=== PATIENT | female | born 1990 | race American Indian/Alaskan Native ===

== ENCOUNTER 2022-03-31 16:58 | Emergency (ER) | payer MEDICAID, OTHER ==
[2022-03-31] MEDS ORDERED: ONDANSETRON 4 MG/2 ML INJ IV ONE (19:27)
[2022-03-31] MEDS ORDERED: SODIUM CHLORIDE 0.9% 1000 ML 1,000 ML IV ONE (19:27)
[2022-03-31] MEDS ORDERED: MORPHINE 4 MG/1 ML INJ IM ONE (19:27)
--- NOTE | 2022-03-31 19:33 | Emergency Department Report ---
ED General Adult HPI - General Chief complaint: Vaginal Bleeding Stated complaint: BLEEDING 7WKS PREG Time Seen by Provider: 03/31/22 19:20 Source: patient, EMS Mode of arrival: Stretcher Limitations: No Limitations - History of Present Illness Initial comments: 31-year-old female with no significant past medical history reports to the ER with complaints of vaginal bleeding. Patient reports she was 7 weeks on her last ultrasound that was on March 10. Patient reports having clots passing with her vaginal bleeding this time. Patient is a G1, P4. Patient reports abdominal cramping with a pain level 5 out of 10. Patient reports her vaginal bleeding started today. Patient reports no other acute signs or symptoms at this moment - Related Data Previous Rx's Medication Instructions Recorded Last Taken Type Acetaminophen/Codeine [Tylenol 1 tab PO Q6H PRN 3 Days #9 tab 03/31/22 Unknown Rx /Codeine # 3 tab] Allergies Allergy/AdvReac Type Severity Reaction Status Date / Time No Known Allergies Allergy Verified 03/31/22 17:05 ED Review of Systems ROS: Stated complaint: BLEEDING 7WKS PREG Other details as noted in HPI Comment: All other systems reviewed and negative Gastrointestinal: abdominal pain Genitourinary: other (Vaginal bleeding) ED Past Medical Hx - Past Medical History Previous Medical History?: No - Medications Home Medications: Home Medications Medication Instructions Recorded Confirmed Last Taken Type Acetaminophen/Codeine [Tylenol 1 tab PO Q6H PRN 3 Days #9 tab 03/31/22 Unknown Rx /Codeine # 3 tab] ED Physical Exam - General Limitations: No Limitations General appearance: alert, in no apparent distress - Head Head exam: Present: atraumatic, normocephalic - Eye Eye exam: Present: normal appearance - ENT ENT exam: Present: mucous membranes moist - Neck Neck exam: Present: normal inspection - Respiratory Respiratory exam: Present: normal lung sounds bilaterally. Absent: respiratory distress - Cardiovascular Cardiovascular Exam: Present: regular rate, normal rhythm. Absent: systolic murmur, diastolic murmur, rubs, gallop - GI/Abdominal GI/Abdominal exam: Present: soft, normal bowel sounds, other (Suprapubic pain) - External exam: Present: other (Vaginal exam deferred.) - Extremities Exam Extremities exam: Present: normal inspection - Back Exam Back exam: Present: normal inspection - Neurological Exam Neurological exam: Present: alert, oriented X3 - Psychiatric Psychiatric exam: Present: normal affect, normal mood - Skin Skin exam: Present: warm, dry, intact, normal color. Absent: rash ED Course Vital Signs 03/31/22 03/31/22 17:03 22:15 Temperature 98.7 F Pulse Rate 92 H 79 Respiratory 17 Rate Blood Pressure 106/74 114/59 [Left] O2 Sat by Pulse 100 98 Oximetry ED Medical Decision Making - Lab Data Result diagrams: 03/31/22 19:32 03/31/22 19:32 - Radiology Data Radiology results: report reviewed [facility] [address] [place] [address] Ultrasound Report Signed Patient: MIGUEL ANGEL CHAUDHARI MR#: [id number] : 1990 Acct:[id number] Age/Sex: 31 / F ADM Date: 03/31/22 Loc: ED Attending Dr: Ordering Physician: SADA ALBRIGHT NP Date of Service: 03/31/22 Procedure(s): US OB <= 14 weeks fetus Accession Number(s): [id number] cc: SADA ALBRIGHT NP ULTRASOUND OBSTETRIC INDICATION: Vaginal bleeding. Miscarriage. TECHNIQUE: Transabdominal. COMPARISON: None available. FINDINGS: GESTATIONAL SAC: None seen. YOLK SAC: None seen. EMBRYO/FETUS: None seen. ADNEXA: No evidence of an ectopic . There is a 1.7 cm follicle in the right ovary. FREE FLUID: None. ADDITIONAL FINDINGS: None. IMPRESSION: No sonographic evidence of an intrauterine or ectopic . No other acute findings. Signer Name: Raoul Marvin MD Signed: 03/31/2022 9:54 PM Workstation Name: [id number] Transcribed By: [place] Dictated By: Raoul Marvin MD Electronically Authenticated By: Raoul Marvin MD Signed Date/Time: 03/31/222153 DD/ 51 TD/TT: - Medical Decision Making 31-year-old female reports to the ER with complaints of vaginal bleeding. Patient reports she is 7 weeks on her last ultrasound on March 10. Patient reports passing of clots. On physical exam patient does have suprapubic pain. Labs are unremarkable. Patient is hCG is low for patient is expected timeframe of weeks. Ultrasound shows no products of conception within her uterus. Patient informed of lab results and ultrasound findings. Patient informed to follow-up with her [facility] and her primary care provider. Patient has likely passed products of conception when she was passing clots. Patient reports a decrease in pain while in the ER patient reports feeling better. Patient informed that her symptoms are to get worse or increase in bleeding to report back to the ER. Patient agrees with plan of care and verbalized understanding. Vital Signs 03/31/22 03/31/22 17:03 22:15 Temperature 98.7 F Pulse Rate 92 H 79 Respiratory 17 Rate Blood Pressure 106/74 114/59 [Left] O2 Sat by Pulse 100 98 Oximetry Lab Results 03/31/22 03/31/22 03/31/22 Range/Units 19:32 19:32 19:32 WBC 11.2 H (4.5-11.0) K/mm3 RBC 3.96 (3.65-5.03) M/mm3 Hgb 10.3 (10.1-14.3) gm/dl Hct 31.8 (30.3-42.9) % MCV 80 (79-97) fl MCH 26 L (28-32) pg MCHC 32 (30-34) % RDW 23.4 H (13.2-15.2) % Plt Count 287 (140-440) K/mm3 Add Manual Diff Complete Total Counted 100 Seg Neuts % (Manual) 75.0 H (40.0-70.0) % Band Neutrophils % 2.0 % Lymphocytes % (Manual) 16.0 (13.4-35.0) % Reactive Lymphs % (Man) 0 % Monocytes % (Manual) 4.0 (0.0-7.3) % Eosinophils % (Manual) 3.0 (0.0-4.3) % Basophils % (Manual) 0 (0.0-1.8) % Metamyelocytes % 0 % Myelocytes % 0 % Promyelocytes % 0 % Blast Cells % 0 % Nucleated RBC % Not Reportable Seg Neutrophils # Man 8.4 H (1.8-7.7) K/mm3 Band Neutrophils # 0.2 K/mm3 Lymphocytes # (Manual) 1.8 (1.2-5.4) K/mm3 Abs React Lymphs (Man) 0.0 K/mm3 Monocytes # (Manual) 0.4 (0.0-0.8) K/mm3 Eosinophils # (Manual) 0.3 (0.0-0.4) K/mm3 Basophils # (Manual) 0.0 (0.0-0.1) K/mm3 Metamyelocytes # 0.0 K/mm3 Myelocytes # 0.0 K/mm3 Promyelocytes # 0.0 K/mm3 Blast Cells # 0.0 K/mm3 WBC Morphology Not Reportable Hypersegmented Neuts Not Reportable Hyposegmented Neuts Not Reportable Hypogranular Neuts Not Reportable Smudge Cells Not Reportable Toxic Granulation Not Reportable Toxic Vacuolation Not Reportable Dohle Bodies Not Reportable Pelger-Huet Anomaly Not Reportable Estrellita Rods Not Reportable Platelet Estimate Consistent w auto Clumped Platelets Not Reportable Plt Clumps, EDTA Not Reportable Large Platelets Not Reportable Giant Platelets Not Reportable Platelet Satelliting Not Reportable Plt Morphology Comment Not Reportable RBC Morphology Not Reportable Dimorphic RBCs Not Reportable Polychromasia Not Reportable Hypochromasia 1+ Poikilocytosis Not Reportable Anisocytosis 1+ Microcytosis 1+ Macrocytosis Not Reportable Spherocytes Not Reportable Pappenheimer Bodies Not Reportable Sickle Cells Not Reportable Target Cells Not Reportable Tear Drop Cells Not Reportable Ovalocytes Not Reportable Helmet Cells Not Reportable [place] Bodies Not Reportable [place] Rings Not Reportable Geri Cells Not Reportable Bite Cells Not Reportable Crenated Cell Not Reportable Elliptocytes Not Reportable Acanthocytes (Spur) Not Reportable Rouleaux Not Reportable Hemoglobin C Crystals Not Reportable Schistocytes Rare Malaria parasites Not Reportable Ranjit Bodies Not Reportable Hem Pathologist Commnt No Sodium 138 (137-145) mmol/L Potassium 4.4 (3.6-5.0) mmol/L Chloride 105.6 (98-107) mmol/L Carbon Dioxide 21 L (22-30) mmol/L Anion Gap 16 mmol/L BUN 5 L (7-17) mg/dL Creatinine 0.7 (0.6-1.2) mg/dL Estimated GFR > 60 ml/min BUN/Creatinine Ratio 7 % Glucose 86 (65-100) mg/dL Calcium 9.4 (8.4-10.2) mg/dL HCG, Quant 1517 H (0-4) mIU/mL Blood Type Antibody Screen 03/31/22 Range/Units 20:00 WBC (4.5-11.0) K/mm3 RBC (3.65-5.03) M/mm3 Hgb (10.1-14.3) gm/dl Hct (30.3-42.9) % MCV (79-97) fl MCH (28-32) pg MCHC (30-34) % RDW (13.2-15.2) % Plt Count (140-440) K/mm3 Add Manual Diff Total Counted Seg Neuts % (Manual) (40.0-70.0) % Band Neutrophils % % Lymphocytes % (Manual) (13.4-35.0) % Reactive Lymphs % (Man) % Monocytes % (Manual) (0.0-7.3) % Eosinophils % (Manual) (0.0-4.3) % Basophils % (Manual) (0.0-1.8) % Metamyelocytes % % Myelocytes % % Promyelocytes % % Blast Cells % % Nucleated RBC % Seg Neutrophils # Man (1.8-7.7) K/mm3 Band Neutrophils # K/mm3 Lymphocytes # (Manual) (1.2-5.4) K/mm3 Abs React Lymphs (Man) K/mm3 Monocytes # (Manual) (0.0-0.8) K/mm3 Eosinophils # (Manual) (0.0-0.4) K/mm3 Basophils # (Manual) (0.0-0.1) K/mm3 Metamyelocytes # K/mm3 Myelocytes # K/mm3 Promyelocytes # K/mm3 Blast Cells # K/mm3 WBC Morphology Hypersegmented Neuts Hyposegmented Neuts Hypogranular Neuts Smudge Cells Toxic Granulation Toxic Vacuolation Dohle Bodies Pelger-Huet Anomaly Estrellita Rods Platelet Estimate Clumped Platelets Plt Clumps, EDTA Large Platelets Giant Platelets Platelet Satelliting Plt Morphology Comment RBC Morphology Dimorphic RBCs Polychromasia Hypochromasia Poikilocytosis Anisocytosis Microcytosis Macrocytosis Spherocytes Pappenheimer Bodies Sickle Cells Target Cells Tear Drop Cells Ovalocytes Helmet Cells [place] Bodies [place] Rings [place] Cells Bite Cells Crenated Cell Elliptocytes Acanthocytes (Spur) Rouleaux Hemoglobin C Crystals Schistocytes Malaria parasites Ranjit Bodies Hem Pathologist Commnt Sodium (137-145) mmol/L Potassium (3.6-5.0) mmol/L Chloride (98-107) mmol/L Carbon Dioxide (22-30) mmol/L Anion Gap mmol/L BUN (7-17) mg/dL Creatinine (0.6-1.2) mg/dL Estimated GFR ml/min BUN/Creatinine Ratio % Glucose (65-100) mg/dL Calcium (8.4-10.2) mg/dL HCG, Quant (0-4) mIU/mL Blood Type O POSITIVE Antibody Screen Negative Critical care attestation.: If time is entered above; I have spent that time in minutes in the direct care of this critically ill patient, excluding procedure time. ED Disposition Clinical Impression: Vaginal bleeding, Complete miscarriage, Abdominal cramping Disposition: 01 HOME / SELF CARE / HOMELESS Is pt being admited?: No Condition: Stable Instructions: Abnormal Uterine Bleeding, Miscarriage Prescriptions: Acetaminophen/Codeine [Tylenol /Codeine # 3 tab] 1 tab PO Q6H PRN 3 Days #9 tab PRN Reason: Pain , Severe (7-10) Referrals: [facility] [Other] - 3-5 Days
[2022-03-31 20:14] LABS: Hematocrit 31.8 % (30.3-42.9); Hemoglobin 10.3 gm/dl (10.1-14.3); Mean Corpuscular HGB Conc 32 % (30-34); Mean Corpuscular Volume 80 fl (79-97); Platelet Count 287 K/mm3 (140-440); Red Blood Count 3.96 M/mm3 (3.65-5.03)
[2022-03-31 20:27] LABS: Blood Urea Nitrogen 5 mg/dL (7-17); Calcium 9.4 mg/dL (8.4-10.2); Hemolysis Index 5
[2022-03-31 20:34] LABS: Red Cell Distribution Width 23.4 % (13.2-15.2)
[2022-03-31 20:40] LABS: BUN/Creatinine Ratio 7
[2022-03-31 21:56] LABS: Band Neutrophils # (Manual) 0.2 K/mm3; Basophils % (Manual) 0 % (0.0-1.8); Total Cells Counted 100
[2022-03-31 21:57] LABS: Anisocytosis 1+; Hypochromasia 1+; Platelet Estimate Consistent w Auto; Schistocytes Rare
--- NOTE | 2022-03-31 21:59 | Ultrasound Report ---
ULTRASOUND OBSTETRIC INDICATION: Vaginal bleeding. Miscarriage. TECHNIQUE: Transabdominal. COMPARISON: None available. FINDINGS: GESTATIONAL SAC: None seen. YOLK SAC: None seen. EMBRYO/FETUS: None seen. ADNEXA: No evidence of an ectopic . There is a 1.7 cm follicle in the right ovary. FREE FLUID: None. ADDITIONAL FINDINGS: None. IMPRESSION: No sonographic evidence of an intrauterine or ectopic . No other acute findings. Signer Name: Raoul Marvin MD Signed: 03/31/2022 9:54 PM Workstation Name: [id number]
[2022-03-31 22:16] VITALS: BP 114/59
== END 2022-03-31 22:18 | disposition home or self-care (01) ==
LOC: ED 16:58
DX: O03.9 Complete or unspecified spontaneous abortion without complication (principal); O46.91 Antepartum hemorrhage, unspecified, first trimester; O26.891 Other specified pregnancy related conditions, first trimester; R10.9 Unspecified abdominal pain; Z3A.01 Less than 8 weeks gestation of pregnancy
CPT/HCPCS: 36415; 76801; 80048; 84702; 85007; 85025; 86850; 86900; 86901; 96361; 96372; 96374; 99284; J2270; J2405; J7030